=== PATIENT | female | born 1935 | race Caucasian/White ===

== ENCOUNTER 2017-08-18 14:53 | Inpatient (IN) | payer MEDICARE, OTHER ==
[~2017-08-18] VITALS: Ht 162.6 cm; Wt 75.0 kg
[~2017-08-18 14:53] MED LIST: AMLO5 PO; ECOT81TA2 PO
[2017-08-18 14:58] VITALS: BP 183/86; PULSE 81; RESP 16; TEMP 99.3; O2SAT 96
--- NOTE | 2017-08-18 15:15 | PD ---
HPI Chief Complaint: Psychiatric Symptoms Time Seen by Provider: 15:15 Travel History International Travel<30 days: No Contact w/Intl Traveler<30days: No Traveled to known affect area: No PFSH Past Medical History Arthritis: Yes Asthma: No Anxiety: No Depression: No Cancer: Yes (LEUKEMIA) Cardiovascular Problems: No Chemotherapy: Yes (LEUKEMIA) Chest Pain: No Cerebrovascular Accident: No Diabetes: No Endocrine: No GERD: Yes Genitourinary: Yes Hepatitis: Yes (C) Immune Disorder: No Kidney Stones: Yes Musculoskeletal: Yes Neurologic: Yes Psychiatric: No Reproductive: No Respiratory: Yes Migraines: No Radiation Therapy: No Seizures: No Sleep Apnea: Yes Thyroid Disease: No Ulcer: Yes ?: Not Past Surgical History Gynecologic Surgery: Yes Tonsillectomy: Yes Social History Alcohol Use: No Tobacco Use: No Substance Use: No Allergies-Medications (Allergen,Severity, Reaction): Coded Allergies: No Known Allergies (Unverified Adverse Reaction, Unknown, 08/18/17) Reported Meds & Prescriptions Reported Meds & Active Scripts Active Norvasc (Amlodipine Besylate) 5 Mg Tab 5 Mg PO DAILY 30 Days Ecotrin (Aspirin) 81 Mg Tabec 81 Mg PO DAILY Data Data Last Documented VS Vital Signs Date Time Temp Pulse Resp B/P (MAP) Pulse Ox O2 Delivery O2 Flow Rate FiO2 08/18/17 14:58 99.3 81 16 183/86 (118) 96 Orders Orders Electrocardiogram (08/18/17 15:06) Complete Blood Count With Diff (08/18/17 15:06) Comprehensive Metabolic Panel (08/18/17 15:06) Psych Screen (08/18/17 15:06) Diet Regular Basic (08/18/17 Dinner) Urinalysis - C+S If Indicated (08/18/17 15:16) Alcohol (Ethanol) (08/18/17 15:16) Drug Screen, Random Urine (08/18/17 15:16) Salicylates (Aspirin) (08/18/17 15:16) Tylenol (Acetaminophen) (08/18/17 15:16) Thyroid Stimulating Hormone (08/18/17 15:21) Nicolas Fraser MD August 18, 2017 15:15
--- NOTE | 2017-08-18 15:20 | PD ---
HPI Chief Complaint: Psychiatric Symptoms Time Seen by Provider: 15:16 Travel History International Travel<30 days: No Contact w/Intl Traveler<30days: No Traveled to known affect area: No History of Present Illness HPI This is a 81-year-old female who presents under Avendaño act initiated by the [employer]. According to her paperwork the patient has a history of dementia. She was concerned that her was stealing money with appears that the patient is a resident of assisted-living facility called [facility]. Her is a resident there too. Today apparently someone drove her to the [employer] and somehow [facility]'s office became involved and she was placed under Avendaño act. She was then brought to [facility] who then sent her here for unknown reasons. Our nurse will attempt to contact [facility] to get additional information about why she was sent here. The patient is denying any suicidal homicidal ideation. She denies any hallucinations. She denies any drug or alcohol use. She has no medical complaints at this time and feels quite well. PFSH Past Medical History Arthritis: Yes Asthma: No Anxiety: No Depression: No Cancer: Yes (LEUKEMIA) Cardiovascular Problems: No Chemotherapy: Yes (LEUKEMIA) Chest Pain: No Cerebrovascular Accident: No Diabetes: No Endocrine: No GERD: Yes Genitourinary: Yes Hepatitis: Yes (C) Immune Disorder: No Kidney Stones: Yes Musculoskeletal: Yes Neurologic: Yes Psychiatric: No Reproductive: No Respiratory: Yes Migraines: No Radiation Therapy: No Seizures: No Sleep Apnea: Yes Thyroid Disease: No Ulcer: Yes ?: Not Past Surgical History Gynecologic Surgery: Yes Tonsillectomy: Yes Social History Alcohol Use: No Tobacco Use: No Substance Use: No Allergies-Medications (Allergen,Severity, Reaction): Coded Allergies: No Known Allergies (Unverified Adverse Reaction, Unknown, 08/18/17) Reported Meds & Prescriptions Reported Meds & Active Scripts Active Norvasc (Amlodipine Besylate) 5 Mg Tab 5 Mg PO DAILY 30 Days Ecotrin (Aspirin) 81 Mg Tabec 81 Mg PO DAILY Review of Systems Except as stated in HPI: all other systems reviewed are Neg Physical Exam Narrative GENERAL: Well-developed well-nourished female no acute distress sitting upright in chair in the signal 20 room. SKIN: Warm and dry. HEAD: Atraumatic. Normocephalic. EYES: Pupils equal and round. No scleral icterus. No injection or drainage. ENT: No nasal bleeding or discharge. Mucous membranes pink and moist. NECK: Trachea midline. No JVD. CARDIOVASCULAR: Regular rate and rhythm. No murmur appreciated. RESPIRATORY: No accessory muscle use. Clear to auscultation. Breath sounds equal bilaterally. GASTROINTESTINAL: Abdomen soft, non-tender, nondistended. Hepatic and splenic margins not palpable. MUSCULOSKELETAL: No obvious deformities. No clubbing. No cyanosis. No edema. NEUROLOGICAL: Awake and alert. No obvious cranial nerve deficits. Motor grossly within normal limits. Normal speech. Alert and oriented to person, place, time. Data Data Last Documented VS Vital Signs Date Time Temp Pulse Resp B/P (MAP) Pulse Ox O2 Delivery O2 Flow Rate FiO2 08/18/17 14:58 99.3 81 16 183/86 (118) 96 Orders Orders Electrocardiogram (08/18/17 15:06) Complete Blood Count With Diff (08/18/17 15:06) Psych Screen (08/18/17 15:06) Diet Regular Basic (08/18/17 Dinner) Urinalysis - C+S If Indicated (08/18/17 15:16) Drug Screen, Random Urine (08/18/17 15:16) Salicylates (Aspirin) (08/18/17 15:16) Thyroid Stimulating Hormone (08/18/17 15:21) Tylenol (Acetaminophen) (08/18/17 15:09) Alcohol (Ethanol) (08/18/17 15:09) Comprehensive Metabolic Panel (08/18/17 15:09) Labs Laboratory Tests Test 08/18/17 15:09 08/18/17 17:10 White Blood Count 7.8 TH/MM3 Red Blood Count 4.80 MIL/MM3 Hemoglobin 13.8 GM/DL Hematocrit 41.9 % Mean Corpuscular Volume 87.4 FL Mean Corpuscular Hemoglobin 28.8 PG Mean Corpuscular Hemoglobin Concent 32.9 % Red Cell Distribution Width 14.1 % Platelet Count 229 TH/MM3 Mean Platelet Volume 7.6 FL Neutrophils (%) (Auto) 69.3 % Lymphocytes (%) (Auto) 23.0 % Monocytes (%) (Auto) 5.4 % Eosinophils (%) (Auto) 1.4 % Basophils (%) (Auto) 0.9 % Neutrophils # (Auto) 5.4 TH/MM3 Lymphocytes # (Auto) 1.8 TH/MM3 Monocytes # (Auto) 0.4 TH/MM3 Eosinophils # (Auto) 0.1 TH/MM3 Basophils # (Auto) 0.1 TH/MM3 CBC Comment DIFF FINAL Differential Comment Blood Urea Nitrogen 17 MG/DL Creatinine 1.00 MG/DL Random Glucose 88 MG/DL Total Protein 8.1 GM/DL Albumin 3.9 GM/DL Calcium Level 9.3 MG/DL Alkaline Phosphatase 43 U/L Aspartate Amino Transf (AST/SGOT) 23 U/L Alanine Aminotransferase (ALT/SGPT) 24 U/L Total Bilirubin 0.3 MG/DL Sodium Level 140 MEQ/L Potassium Level 3.9 MEQ/L Chloride Level 104 MEQ/L Carbon Dioxide Level 24.9 MEQ/L Anion Gap 11 MEQ/L Estimat Glomerular Filtration Rate 53 ML/MIN Thyroid Stimulating Hormone 3rd Gen 0.757 uIU/ML Salicylates Level LESS THAN 1.7 MG/DL Acetaminophen Level LESS THAN 2.0 MCG/ML Ethyl Alcohol Level LESS THAN 3 MG/DL Urine Color LIGHT-YELLOW Urine Turbidity CLEAR Urine pH 6.5 Urine Specific [place] 1.007 Urine Protein NEG mg/dL Urine Glucose (UA) NEG mg/dL Urine Ketones NEG mg/dL Urine Occult Blood NEG Urine Nitrite NEG Urine Bilirubin NEG Urine Urobilinogen LESS THAN 2.0 MG/DL Urine Leukocyte Esterase SMALL Urine WBC 2 /hpf Urine Squamous Epithelial Cells <1 /hpf Microscopic Urinalysis Comment CULT NOT INDICATED Urine Opiates Screen NEG Urine Barbiturates Screen NEG Urine Amphetamines Screen NEG Urine Benzodiazepines Screen NEG Urine Cocaine Screen NEG Urine Cannabinoids Screen NEG MDM Medical Decision Making Medical Screen Exam Complete: Yes Emergency Medical Condition: Yes Medical Record Reviewed: Yes Differential Diagnosis Dementia, acute psychosis, encephalopathy, meningitis, UTI Narrative Course 81-year-old female presents under Avendaño act for psychiatric evaluation. Mental health screening discussed with the patient. Psychiatric screen ordered. The patient's medical workup is unremarkable. She is medically cleared for psychiatric disposition. Diagnosis Primary Impression: Medical clearance for psychiatric admission Reno Munguia August 18, 2017 15:20
[2017-08-18 15:52] LABS: AUTOMATED NEUTROPHIL # 5.4 TH/MM3 (1.8-7.7); BASOPHIL # 0.1 TH/MM3 (0-0.2); BASOPHIL % 0.9 % (0.0-2.0); EOSINOPHIL # 0.1 TH/MM3 (0-0.4); EOSINOPHIL % 1.4 % (0.0-4.0); HEMATOCRIT 41.9 % (35.0-46.0); HEMOGLOBIN 13.8 GM/DL (11.6-15.3); LYMPHOCYTE # 1.8 TH/MM3 (1.0-4.8); MEAN CELL VOLUME 87.4 FL (80.0-100.0); MEAN CORPUSCULAR HEMOGLOBIN 28.8 PG (27.0-34.0); MEAN CORPUSCULAR HGB CONC 32.9 % (32.0-36.0); MEAN PLATELET VOLUME 7.6 FL (7.0-11.0); MONO % 5.4 % (0.0-8.0); MONOCYTE # 0.4 TH/MM3 (0-0.9); NEUT % 69.3 % (16.0-70.0); PLATELET COUNT 229 TH/MM3 (150-450); RED CELL DISTRIBUTION WIDTH 14.1 % (11.6-17.2); WHITE BLOOD COUNT 7.8 TH/MM3 (4.0-11.0)
[2017-08-18 16:12] LABS: ALBUMIN 3.9 GM/DL (3.4-5.0); ALT (GPT) 24 U/L (10-53); AST (GOT) 23 U/L (15-37); BICARBONATE 24.9 MEQ/L (21.0-32.0); BLOOD UREA NITROGEN 17 MG/DL (7-18); CALCIUM 9.3 MG/DL (8.5-10.1); CHLORIDE 104 MEQ/L (98-107); GLOMERULAR FILTRATION RATE 53 ML/MIN (>89); GLUCOSE,RANDOM 88 MG/DL (74-106); SODIUM (NA) 140 MEQ/L (136-145)
[2017-08-18 16:22] LABS: ALKALINE PHOSPHATASE 43 U/L (45-117); TOTAL BILIRUBIN ADULT 0.3 MG/DL (0.2-1.0); TOTAL PROTEIN 8.1 GM/DL (6.4-8.2)
[2017-08-18 16:26] LABS: ACETAMINOPHEN LESS THAN 2.0 MCG/ML (10.0-30.0)
[2017-08-18 17:51] LABS: BILIRUBIN, URINE NEG (NEG); BLOOD, URINE NEG (NEG); GLUCOSE,URINE NEG (NEG); KETONE, URINE NEG (NEG); NITRITE,URINE NEG (NEG); PH, URINE 6.5 (5.0-8.5); SQUAMOUS EPITHELIAL CELL URINE <1 /hpf (0-5); URINE COLOR LIGHT-YELLOW (YELLW/STRAW); URINE LEUKOCYTE ESTERASE SMALL (NEG)
[2017-08-18 19:35] VITALS: BP 164/78; PULSE 84; RESP 17; O2SAT 97
[2017-08-19 01:00] VITALS: BP 176/92; PULSE 74; RESP 16; TEMP 98.3; O2SAT 95
[2017-08-19] MEDS ORDERED: ALUMINUM/MAGNESIUM/SIMETH 30 ML CUP PO PRN (01:15)
[2017-08-19] MEDS ORDERED: LORazepam 0.5 MG TAB age > 65 yrs PO PRN (01:15)
[2017-08-19] MEDS ORDERED: MAGNESIUM HYDROXIDE SUSP 30 ML CUP PO PRN (01:15)
[2017-08-19] MEDS ORDERED: diphenhydrAMINE HCL 50 MG/ML VIAL - HS PRN IM (01:15)
[2017-08-19] MEDS ORDERED: LORazepam 2 MG/ML VIAL - age > 65 yrs IM PRN (01:15)
[2017-08-19] MEDS ORDERED: diphenhydrAMINE HCL 50 MG CAP - HS PRN PO (01:15)
[2017-08-19 06:15] VITALS: BP 164/89; PULSE 65; RESP 16; TEMP 97.9; O2SAT 95
[2017-08-19] MEDS: amLODIPine BESYLATE 5 MG TAB PO SCH (08:49)
[2017-08-19] MEDS: ACETAMINOPHEN 325 MG TAB PO PRN ×2 (08:51→13:30)
[2017-08-19] MEDS ORDERED: hydrOXYzine HCL 50 MG TAB PO PRN (10:45)
--- NOTE | 2017-08-19 10:51 | HHI.HP ---
Provisional Diagnosis Admission Date August 19, 2017 at 00:56 [place] I. Alzheimer's disease late onset, dementia with behavioral disturbance Certification of Person's Competence To Provide Express and Informed Consent I have personally examined Ria Bravo , a person being served at [facility] on, August 19, 2017 10:38. Express and informed consent means consent voluntarily given in writing, by a competent person, after sufficient explanation and disclosure of the subject matter involved to enable the person to make a knowing and willful decision without any element of force, fraud, deceit, duress, or other form of constraint or coercion. This person is 18 years of age or older, is not now known to be incompetent to consent to treatment with a guardian advocate, and does not have a health care surrogate or proxy currently making medical treatment decisions. I have found this person to be one of the following: [] Competent to provide express and informed consent, as defined above, for voluntary admission to this facility and is competent to provide express and informed consent for treatment. He/she has the consistent capacity to make well reasoned, willful, and knowing decisions concerning his or her medical or mental health treatment. The person fully and consistently understands the purpose of the admission for examination/placement and is fully capable of personally exercising all rights assured under [place] Incompetent to provide express and informed consent to voluntary admission, and this is incompetent to provide express and informed consent to treatment. The person must be transferred to involuntary status and a petition for a guardian advocate filed with the Circuit Court. [] Refusing to provide express and informed consent to voluntary admission but is competent to provide express and informed consent for treatment. The person must be discharged or transferred to involuntary status. Form shall be completed within 24 hours of a person's arrival at the receiving facility and filed in the clinical record of each person: 1. Admitted on a voluntary basis 2. Permitted to provide express and informed consent to his/her own treatment 3. Allowed to transfer from involuntary to voluntary status 4. Prior to permitting a person to consent to his or her own treatment after having been previously found incompetent to consent to treatment. History of Present Illness Capacity: Lacks Capacity HPI Patient is a 81-year-old white female comes here under a Avendaño act of the [facility]'s office dated 08/18/17 at 1326 hrs. that document reviewed and agreed with it essentially states on August 18, 2017 I may contact with Ria who has made several allegations of her stealing money and not allowing her to drive or leave the residence. Through further investigation it was found that Ria has been diagnosed with dementia. Ria left their assisted living facility without telling anyone got into her vehicle with unknown roll off driver to get a ride into [place] at this [facility]. Due to Ria's diminished mental capacity and remembering timelines as well as paranoia she was transported under the Avendaño act in attempts to get her a better mental health assessment it is certain without help or care of Ria could unintentionally get herself hurt or loss she should refuse to go back to her residence due to the belief her would be angry at her for running away. Patient seen screen in the emergency department urine toxicology negative, urinalysis shows no culture indicated. Patient seen in her room with nurse Audelia. Patient is an alert diffusely disoriented to place time and situation white female appears about his stated age she is pleasant cooperative no acute distress. She states she lives with her of 40 years that they get along well together that they live in their own apartment. She says she does not know why she was Avendaño acted. She denies suicidality and homicidality voices or visions. She denies any prior psychiatric contact or hospitalization or psychotropic medication. She denies any alcohol or drug use. She denies any past physical and/or sexual abuse. She states she has 4 adult children who live a distance from her at this time patient does not meet criteria for acute involuntary psychiatric hospitalization under the Avendaño act L the first opinion request second opinion. I feel she does not have capacity thus I will ask for health care surrogate and guardian advocate. We will attempt to reach patient' s to get further information. It appears patient has had her 4 adult children with a relationship prior to her present . It appears to may be some relationship issues between patient's and her children Review of Systems Constitutional: DENIES: Diaphoretic episodes, Fatigue, Fever, Weight gain, Weight loss, Chills, Dizziness, Change in appetite, Night Sweats Endocrine: DENIES: Abnorml menstrual pattern, Heat/cold intolerance, Polydipsia , Polyuria, Polyphagia Eyes: DENIES: Blurred vision, Diplopia, Eye inflammation, Eye pain, Vision loss , Photosensitivity, Double Vision Ears, nose, mouth, throat: DENIES: Tinnitus, Hearing loss, Vertigo, Nasal discharge, Oral lesions, Throat pain, Hoarseness, Ear Pain, Running Nose, Epistaxis, Sinus Pain, Toothache, Odynophagia Respiratory: DENIES: Apneas, Cough, Snoring, Wheezing, Hemoptysis, Sputum production, Shortness of breath Cardiovascular: DENIES: Chest pain, Palpitations, Syncope, Dyspnea on Exertion , PND, Lower Extremity Edema, Orthopnea, Claudication Gastrointestinal: DENIES: Abdominal pain, Black stools, Bloody stools, Constipation, Diarrhea, Nausea, Vomiting, Difficulty Swallowing, Anorexia Genitourinary: DENIES: Abnormal vaginal bleeding, Dysmenorrhea, Dyspareunia, Sexual dysfunction, Urinary frequency, Urinary incontinence, Urgency, Hematuria , Dysuria, Nocturia, Vaginal discharge Musculoskeletal: DENIES: Joint pain, Muscle aches, Stiffness, Joint Swelling, Back pain, Neck pain Integumentary: DENIES: Abnormal pigmentation, Pruritus, Rash, Nail changes, Breast masses, Breast skin changes, Nipple discharge Hematologic/lymphatic: DENIES: Bruising, Lymphadenopathy Immunologic/allergic: DENIES: Eczema, Urticaria Neurologic: DENIES: Abnormal gait, Headache, Localized weakness, Paresthesias, Seizures, Speech Problems, Tremor, Poor Balance Psychiatric: DENIES: Anxiety, Confusion, Mood changes, Depression, Hallucinations, Agitation, Suicidal Ideation, Homicidal Ideation, Delusions Past Psych History Psychological trauma history Patient denies Violence risk - others (6 mos) Low Violence risk - self (6 mos) Low Substance Abuse History Drugs/Alcohol past 12 months Patient denies Past Family Social History Coded Allergies: No Known Allergies (Unverified Allergy, Unknown, 08/19/17) Discontinued Scripts Amlodipine Besylate (Norvasc) 5 Mg Tab, 5 MG PO DAILY for BLOOD PRESSURE for 30 Days, TAB 0 Refills Prov:Mitzy Cohen 02/23/14 Aspirin (Ecotrin Low Strength) 81 Mg Tabec, 81 MG PO DAILY for PREVENT STROKE , #30 TAB 0 Refills Prov:Mitzy Cohen 02/23/14 Current Medications Medications (Trade) Dose Ordered Sig/Ivan Route Start Time Stop Time Status Last Admin (Benadryl) 50 mg HS PRN PO 08/19/17 01:15 (Benadryl Inj) 50 mg HS PRN IM 08/19/17 01:15 (Tylenol) 650 mg Q4H PRN PO 08/19/17 01:15 08/19/17 08:51 (Milk Of Magnesia Liq) 30 ml DAILY PRN PO 08/19/17 01:15 (Mag-Al Plus Susp Liq) 30 ml Q6H PRN PO 08/19/17 01:15 (Norvasc) 5 mg DAILY PO 08/19/17 09:00 08/19/17 08:49 Family Psych History Patient denies Social History Patient lives with her of 40 years. She has had 4 adult children by a prior relationship Patient's Strengths (min. 2) Patient verbal able access healthcare Physical Exam Patient medically cleared ED at the present time patient sitting quietly in her room she is in no acute distress, patient in no respiratory distress, no complaints of abdominal pain, patient moving all 4 extremities without difficulty. No abnormal motor movements noted Vital Signs Vital Signs Date Time Temp Pulse Resp B/P (MAP) Pulse Ox O2 Delivery O2 Flow Rate FiO2 08/19/17 06:15 97.9 65 16 164/89 (114) 95 08/18/17 19:35 Room Air Lab Results Test 08/18/17 15:09 08/18/17 17:10 White Blood Count 7.8 TH/MM3 Red Blood Count 4.80 MIL/MM3 Hemoglobin 13.8 GM/DL Hematocrit 41.9 % Mean Corpuscular Volume 87.4 FL Mean Corpuscular Hemoglobin 28.8 PG Mean Corpuscular Hemoglobin Concent 32.9 % Red Cell Distribution Width 14.1 % Platelet Count 229 TH/MM3 Mean Platelet Volume 7.6 FL Neutrophils (%) (Auto) 69.3 % Lymphocytes (%) (Auto) 23.0 % Monocytes (%) (Auto) 5.4 % Eosinophils (%) (Auto) 1.4 % Basophils (%) (Auto) 0.9 % Neutrophils # (Auto) 5.4 TH/MM3 Lymphocytes # (Auto) 1.8 TH/MM3 Monocytes # (Auto) 0.4 TH/MM3 Eosinophils # (Auto) 0.1 TH/MM3 Basophils # (Auto) 0.1 TH/MM3 CBC Comment DIFF FINAL Differential Comment Blood Urea Nitrogen 17 MG/DL Creatinine 1.00 MG/DL Random Glucose 88 MG/DL Total Protein 8.1 GM/DL Albumin 3.9 GM/DL Calcium Level 9.3 MG/DL Alkaline Phosphatase 43 U/L Aspartate Amino Transf (AST/SGOT) 23 U/L Alanine Aminotransferase (ALT/SGPT) 24 U/L Total Bilirubin 0.3 MG/DL Sodium Level 140 MEQ/L Potassium Level 3.9 MEQ/L Chloride Level 104 MEQ/L Carbon Dioxide Level 24.9 MEQ/L Anion Gap 11 MEQ/L Estimat Glomerular Filtration Rate 53 ML/MIN Thyroid Stimulating Hormone 3rd Gen 0.757 uIU/ML Salicylates Level LESS THAN 1.7 MG/DL Acetaminophen Level LESS THAN 2.0 MCG/ML Ethyl Alcohol Level LESS THAN 3 MG/DL Urine Color LIGHT-YELLOW Urine Turbidity CLEAR Urine pH 6.5 Urine Specific [place] 1.007 Urine Protein NEG mg/dL Urine Glucose (UA) NEG mg/dL Urine Ketones NEG mg/dL Urine Occult Blood NEG Urine Nitrite NEG Urine Bilirubin NEG Urine Urobilinogen LESS THAN 2.0 MG/DL Urine Leukocyte Esterase SMALL Urine WBC 2 /hpf Urine Squamous Epithelial Cells <1 /hpf Microscopic Urinalysis Comment CULT NOT INDICATED Urine Opiates Screen NEG Urine Barbiturates Screen NEG Urine Amphetamines Screen NEG Urine Benzodiazepines Screen NEG Urine Cocaine Screen NEG Urine Cannabinoids Screen NEG Mental Status Examination Appearance: Appropriate Consciousness: Alert Orientation: Person Motor Activity: Normal gait Speech: Unremarkable Language: Adequate Fund of Knowledge: Adequate Attention and Concentration: Easily Distracted Memory: Impaired Mood: Other (Euthymic to mildly dysphoric) Affect: Other (Decreased range and intensity) Thought Process & Associations: Intact Thought Content: Other (Somewhat disorganized) Hallucination Type: None Delusion Type: Other (Mildly vigilant) Suicidal Ideation: No Suicidal Plan: No Suicidal Intention: No Homicidal Ideation: No Homicidal Plan: No Homicidal Intention: No Insight: Poor Judgment: Poor Assessment & Plan Problem List: (1) DEMENTIA IN OTH DISEASES CLASSD ELSWHR W BEHAVIORAL DISTURB ICD Codes: F02.81 - DEMENTIA IN OTH DISEASES CLASSD ELSWHR W BEHAVIORAL DISTURB (2) ALZHEIMER'S DISEASE WITH LATE ONSET ICD Codes: G30.1 - ALZHEIMER'S DISEASE WITH LATE ONSET Assessment & Plan Estimated LOS 3-5: days at this time patient does meet criteria for further assessment of the Avendaño act thus I will do first opinion request second opinion , I feel she does not have capacity less I will ask for health care surrogate guardian advocate will continue medications per the med reconciliation. We will have hospitalist consult with us. We will attempt to reach patient's to get further information concerning this nice lady hopefully she can return home to living situation with her Discharge Planning Possible return home Request HC Surrog/Guard Advoc?: Yes Keegan Nicole MD August 19, 2017 10:51
[2017-08-19] MEDS: FLUoxetine HCL 20 MG CAP PO SCH (12:10)
--- NOTE | 2017-08-19 13:12 | PD.PSY.CON ---
Provisional Diagnosis Admission Date August 19, 2017 at 00:56 [place]. Alzheimer's disease late onset, dementia with behavioral disturbance History of Present Illness Service Psychiatry Consult Requested By Psychiatry for second opinion Reason for Consult Second opinion Primary Care Physician Unknown HPI Patient is a 81-year-old white female comes here under a Avendaño act of the [facility]'s office dated 08/18/17 at 1326 hrs. that document reviewed and agreed with it essentially states on August 18, 2017 I may contact with Ria who has made several allegations of her stealing money and not allowing her to drive or leave the residence. Through further investigation it was found that Ria has been diagnosed with dementia. Ria left their assisted living facility without telling anyone got into her vehicle with unknown shuttle bus driver to get a ride into [place] at this [facility]. Due to Ria's diminished mental capacity and remembering timelines as well as paranoia she was transported under the Avendaño act in attempts to get her a better mental health assessment it is certain without help or care of Ria could unintentionally get herself hurt or loss she should refuse to go back to her residence due to the belief her would be angry at her for running away. Patient seen screen in the emergency department urine toxicology negative, urinalysis shows no culture indicated. Patient seen in her room with nurse Audelia. Patient is an alert diffusely disoriented to place time and situation white female appears about his stated age she is pleasant cooperative no acute distress. She states she lives with her of 40 years that they get along well together that they live in their own apartment. She says she does not know why she was Avendaño acted. She denies suicidality and homicidality voices or visions. She denies any prior psychiatric contact or hospitalization or psychotropic medication. She denies any alcohol or drug use. She denies any past physical and/or sexual abuse. She states she has 4 adult children who live a distance from her at this time patient does not meet criteria for acute involuntary psychiatric hospitalization under the Avendaño act L the first opinion request second opinion. I feel she does not have capacity thus I will ask for health care surrogate and guardian advocate. We will attempt to reach patient' s to get further information. It appears patient has had her 4 adult children with a relationship prior to her present . It appears to may be some relationship issues between patient's and her children. Patient was consulted to me for second opinion. She was found pacing in the [place], she is calm, cooperative, pleasant. The patient is diffusely confused, partially disoriented. She knows that she is in the hospital, she knows august, but he does not know the city and the year. The patient told me that she is here because this is her house. She denies pain, she denies distress, she reports good mood. She says that she is actually happy. She denies suicidal enemas ideation, she denies visual and auditory hallucinations. No agitation, no aggressive behavior, no prominent delusions present at this moment Review of Systems Constitutional: DENIES: Diaphoretic episodes, Fatigue, Fever, Weight gain, Weight loss, Chills, Dizziness, Change in appetite, Night Sweats Endocrine: DENIES: Abnorml menstrual pattern, Heat/cold intolerance, Polydipsia , Polyuria, Polyphagia Eyes: DENIES: Blurred vision, Diplopia, Eye inflammation, Eye pain, Vision loss , Photosensitivity, Double Vision Ears, nose, mouth, throat: DENIES: Tinnitus, Hearing loss, Vertigo, Nasal discharge, Oral lesions, Throat pain, Hoarseness, Ear Pain, Running Nose, Epistaxis, Sinus Pain, Toothache, Odynophagia Respiratory: DENIES: Apneas, Cough, Snoring, Wheezing, Hemoptysis, Sputum production, Shortness of breath Cardiovascular: DENIES: Chest pain, Palpitations, Syncope, Dyspnea on Exertion , PND, Lower Extremity Edema, Orthopnea, Claudication Gastrointestinal: DENIES: Abdominal pain, Black stools, Bloody stools, Constipation, Diarrhea, Nausea, Vomiting, Difficulty Swallowing, Anorexia Genitourinary: DENIES: Abnormal vaginal bleeding, Dysmenorrhea, Dyspareunia, Sexual dysfunction, Urinary frequency, Urinary incontinence, Urgency, Hematuria , Dysuria, Nocturia, Vaginal discharge Musculoskeletal: DENIES: Joint pain, Muscle aches, Stiffness, Joint Swelling, Back pain, Neck pain Integumentary: DENIES: Abnormal pigmentation, Pruritus, Rash, Nail changes, Breast masses, Breast skin changes, Nipple discharge Hematologic/lymphatic: DENIES: Bruising, Lymphadenopathy Immunologic/allergic: DENIES: Eczema, Urticaria Neurologic: DENIES: Abnormal gait, Headache, Localized weakness, Paresthesias, Seizures, Speech Problems, Tremor, Poor Balance Psychiatric: DENIES: Anxiety, Confusion, Mood changes, Depression, Hallucinations, Agitation, Suicidal Ideation, Homicidal Ideation, Delusions Past Family Social History Coded Allergies: No Known Allergies (Unverified Allergy, Unknown, 08/19/17) Discontinued Scripts Amlodipine Besylate (Norvasc) 5 Mg Tab, 5 MG PO DAILY for BLOOD PRESSURE for 30 Days, TAB 0 Refills Prov:Mitzy CohenSusan [employer]CRET[employer]RAFTSM[employer] 02/23/14 Aspirin (Ecotrin Low Strength) 81 Mg Tabec, 81 MG PO DAILY for PREVENT STROKE , #30 TAB 0 Refills Prov:Mitzy CohenSusan [employer]CR[employer] 02/23/14 Current Medications Medications (Trade) Dose Ordered Sig/Ivan Route Start Time Stop Time Status Last Admin (Benadryl) 50 mg HS PRN PO 08/19/17 01:15 (Benadryl Inj) 50 mg HS PRN IM 08/19/17 01:15 (Tylenol) 650 mg Q4H PRN PO 08/19/17 01:15 08/19/17 08:51 (Milk Of Magnesia Liq) 30 ml DAILY PRN PO 08/19/17 01:15 (Mag-Al Plus Susp Liq) 30 ml Q6H PRN PO 08/19/17 01:15 (Norvasc) 5 mg DAILY PO 08/19/17 09:00 08/19/17 08:49 (Atarax) 50 mg Q6H PRN PO 08/19/17 10:45 (PROzac) 20 mg DAILY PO 08/19/17 11:15 08/19/17 12:10 (Synthroid) 50 mcg DAILY@0600 PO 08/20/17 06:00 Patient's Strengths (min. 2) Patient verbal able access healthcare Physical Exam Vital Signs Vital Signs Date Time Temp Pulse Resp B/P (MAP) Pulse Ox O2 Delivery O2 Flow Rate FiO2 08/19/17 06:15 97.9 65 16 164/89 (114) 95 08/18/17 19:35 Room Air Lab Results Test 08/18/17 15:09 08/18/17 17:10 White Blood Count 7.8 TH/MM3 Red Blood Count 4.80 MIL/MM3 Hemoglobin 13.8 GM/DL Hematocrit 41.9 % Mean Corpuscular Volume 87.4 FL Mean Corpuscular Hemoglobin 28.8 PG Mean Corpuscular Hemoglobin Concent 32.9 % Red Cell Distribution Width 14.1 % Platelet Count 229 TH/MM3 Mean Platelet Volume 7.6 FL Neutrophils (%) (Auto) 69.3 % Lymphocytes (%) (Auto) 23.0 % Monocytes (%) (Auto) 5.4 % Eosinophils (%) (Auto) 1.4 % Basophils (%) (Auto) 0.9 % Neutrophils # (Auto) 5.4 TH/MM3 Lymphocytes # (Auto) 1.8 TH/MM3 Monocytes # (Auto) 0.4 TH/MM3 Eosinophils # (Auto) 0.1 TH/MM3 Basophils # (Auto) 0.1 TH/MM3 CBC Comment DIFF FINAL Differential Comment Blood Urea Nitrogen 17 MG/DL Creatinine 1.00 MG/DL Random Glucose 88 MG/DL Total Protein 8.1 GM/DL Albumin 3.9 GM/DL Calcium Level 9.3 MG/DL Alkaline Phosphatase 43 U/L Aspartate Amino Transf (AST/SGOT) 23 U/L Alanine Aminotransferase (ALT/SGPT) 24 U/L Total Bilirubin 0.3 MG/DL Sodium Level 140 MEQ/L Potassium Level 3.9 MEQ/L Chloride Level 104 MEQ/L Carbon Dioxide Level 24.9 MEQ/L Anion Gap 11 MEQ/L Estimat Glomerular Filtration Rate 53 ML/MIN Thyroid Stimulating Hormone 3rd Gen 0.757 uIU/ML Salicylates Level LESS THAN 1.7 MG/DL Acetaminophen Level LESS THAN 2.0 MCG/ML Ethyl Alcohol Level LESS THAN 3 MG/DL Urine Color LIGHT-YELLOW Urine Turbidity CLEAR Urine pH 6.5 Urine Specific Eads 1.007 Urine Protein NEG mg/dL Urine Glucose (UA) NEG mg/dL Urine Ketones NEG mg/dL Urine Occult Blood NEG Urine Nitrite NEG Urine Bilirubin NEG Urine Urobilinogen LESS THAN 2.0 MG/DL Urine Leukocyte Esterase SMALL Urine WBC 2 /hpf Urine Squamous Epithelial Cells <1 /hpf Microscopic Urinalysis Comment CULT NOT INDICATED Urine Opiates Screen NEG Urine Barbiturates Screen NEG Urine Amphetamines Screen NEG Urine Benzodiazepines Screen NEG Urine Cocaine Screen NEG Urine Cannabinoids Screen NEG Mental Status Examination Appearance: Appropriate Consciousness: Alert Orientation: Person Motor Activity: Normal gait Speech: Unremarkable Language: Adequate Fund of Knowledge: Adequate Attention and Concentration: Easily Distracted Memory: Impaired Mood: Other (Euthymic to mildly dysphoric) Affect: Other (Decreased range and intensity) Thought Process & Associations: Intact Thought Content: Other (Somewhat disorganized) Hallucination Type: None Delusion Type: Other (Mildly vigilant) Suicidal Ideation: No Suicidal Plan: No Suicidal Intention: No Homicidal Ideation: No Homicidal Plan: No Homicidal Intention: No Insight: Poor Judgment: Poor Assessment & Plan Problem List: (1) DEMENTIA IN OTH DISEASES CLASSD ELSWHR W BEHAVIORAL DISTURB ICD Codes: F02.81 - DEMENTIA IN OTH DISEASES CLASSD ELSWHR W BEHAVIORAL DISTURB Assessment & Plan: I have seen and examined this patient, reviewed documentation, I agree and concur with Dr. Nicole's assessment and plan. (2) ALZHEIMER'S DISEASE WITH LATE ONSET ICD Codes: G30.1 - ALZHEIMER'S DISEASE WITH LATE ONSET Assessment & Plan Estimated LOS: days Request HC Surrog/Guard Advoc?: Yes Narayan Santiago MD August 19, 2017 13:11
--- NOTE | 2017-08-19 13:28 | PD.CONS ---
HPI Service [facility] Consult Requested By Reason for Consult Medical management, history of leukemia and hypertension. Primary Care Physician Unknown Diagnoses: History of Present Illness 89-year-old female with past medical history of hypertension, leukemia, hep C, hyper myalgia, and dementia who presented emergency department on 08/18 after being Avendaño acted by law enforcement in [facility]. Patient had apparently left her [facility] news [facility] living facility without telling anyone and got into a vehicle with unknown six horse hitch driver for ride to [place] to the [employer]. According to law enforcement documentation patient believes that her was stealing money and was not allowing her to drive or leave their residence. It was felt that due to patient's inability to remember timeline, and paranoia she could be a threat to herself therefore was Avendaño acted and brought to the emergency department for psychiatric evaluation. [facility] has been consulted to assist with medical management including hypertension and history of leukemia. Patient is seen and examined in her room, calm and appears to be in no acute distress. She is awake, alert, and oriented only to self. She reports that her leukemia is not currently followed with any oncologist as this had been stable. She does report a history of high blood pressure as well as high cholesterol, is not able to provide me an accurate list of medications. She does report some dizziness but states that this is been ongoing for several months and has not had any proper diagnosing of dizziness. She reports that the dizziness occurs when she leans her head forward. She denies any dizziness or lightheadedness with change of positions or standing. She is also complaining of mid back pain and feels that this may be related to the bed as back pain began once she arrived to inpatient psychiatry department. She rates pain 3/10, nonradiating, dull, lying in bed will make it worse. She denies any leg weakness, saddle anesthesia, fecal urinary incontinence. She continues to ambulate without any assistive devices. She denies any dysuria, hematuria, frequency, or lower pelvic pain. Review of Systems Except as stated in HPI: all other systems reviewed are Neg Past Family Social History Allergies: Coded Allergies: No Known Allergies (Unverified Allergy, Unknown, 08/19/17) Past Medical History Partly obtained from patient as well as review of EMR. Patient is not the best historian. Leukemia currently in remission Hepatitis C Fibromyalgia Hypertension Hyperlipidemia Dementia Past Surgical History Tonsillectomy Reported Medications Reported Meds & Active Scripts Active No Active Prescriptions or Reported Medications Family History Obtained from EMR Parents with a positive history of Alzheimer's. Social History She denies any tobacco, alcohol, or illicit drug use per Physical Exam Vital Signs Vital Signs Date Time Temp Pulse Resp B/P (MAP) Pulse Ox O2 Delivery O2 Flow Rate FiO2 08/19/17 06:15 97.9 65 16 164/89 (114) 95 08/19/17 01:00 98.3 74 16 176/92 (120) 95 08/18/17 19:35 84 17 164/78 (106) 97 Room Air 08/18/17 14:58 99.3 81 16 183/86 (118) 96 Physical Exam GENERAL: This is a well-nourished, well-developed patient, in no apparent distress. SKIN: No rashes, ecchymoses or lesions. Cool and dry. HEAD: Atraumatic. Normocephalic. . EYES: Pupils equal round and reactive. Extraocular motions intact. No scleral icterus. No injection or drainage. ENT: Nose without bleeding, purulent drainage or septal hematoma. Throat without erythema. Uvula midline. Airway patent. NECK: Trachea midline. No JVD . Supple. CARDIOVASCULAR: Regular rate and rhythm without murmurs, gallops, or rubs. RESPIRATORY: Clear to auscultation. Breath sounds equal bilaterally. No wheezes , rales, or rhonchi. GASTROINTESTINAL: Abdomen soft, non-tender, nondistended. No palpable masses. No guarding. Active bowel sounds, no suprapubic pain MUSCULOSKELETAL: Extremities without clubbing, cyanosis, or edema. No joint tenderness, effusion, or edema noted. No calf tenderness. Ambulates without assistive devices, no spinal tenderness with palpation. No CVA tenderness. NEUROLOGICAL: Awake and alert, oriented to self, knows current president. Cranial nerves II through XII intact. Motor and sensory grossly within normal limits. Five out of 5 muscle strength in all muscle groups. Normal speech. Laboratory Laboratory Tests Test 08/18/17 15:09 08/18/17 17:10 White Blood Count 7.8 Red Blood Count 4.80 Hemoglobin 13.8 Hematocrit 41.9 Mean Corpuscular Volume 87.4 Mean Corpuscular Hemoglobin 28.8 Mean Corpuscular Hemoglobin Concent 32.9 Red Cell Distribution Width 14.1 Platelet Count 229 Mean Platelet Volume 7.6 Neutrophils (%) (Auto) 69.3 Lymphocytes (%) (Auto) 23.0 Monocytes (%) (Auto) 5.4 Eosinophils (%) (Auto) 1.4 Basophils (%) (Auto) 0.9 Neutrophils # (Auto) 5.4 Lymphocytes # (Auto) 1.8 Monocytes # (Auto) 0.4 Eosinophils # (Auto) 0.1 Basophils # (Auto) 0.1 CBC Comment DIFF FINAL Differential Comment Blood Urea Nitrogen 17 Creatinine 1.00 Random Glucose 88 Total Protein 8.1 Albumin 3.9 Calcium Level 9.3 Alkaline Phosphatase 43 Aspartate Amino Transf (AST/SGOT) 23 Alanine Aminotransferase (ALT/SGPT) 24 Total Bilirubin 0.3 Sodium Level 140 Potassium Level 3.9 Chloride Level 104 Carbon Dioxide Level 24.9 Anion Gap 11 Estimat Glomerular Filtration Rate 53 Thyroid Stimulating Hormone 3rd Gen 0.757 Salicylates Level LESS THAN 1.7 Acetaminophen Level LESS THAN 2.0 Ethyl Alcohol Level LESS THAN 3 Urine Color LIGHT-YELLOW Urine Turbidity CLEAR Urine pH 6.5 Urine Specific [place] 1.007 Urine Protein NEG Urine Glucose (UA) NEG Urine Ketones NEG Urine Occult Blood NEG Urine Nitrite NEG Urine Bilirubin NEG Urine Urobilinogen LESS THAN 2.0 Urine Leukocyte Esterase SMALL Urine WBC 2 Urine Squamous Epithelial Cells <1 Microscopic Urinalysis Comment CULT NOT INDICATED Urine Opiates Screen NEG Urine Barbiturates Screen NEG Urine Amphetamines Screen NEG Urine Benzodiazepines Screen NEG Urine Cocaine Screen NEG Urine Cannabinoids Screen NEG Result Diagram: 08/18/17 1509 08/18/17 1509 Assessment and Plan Assessment and Plan 89-year-old female with past medical history of hypertension, leukemia, hep C, hyper myalgia, and dementia who presented emergency department on 08/18 after being Avendaño acted by law enforcement in [facility] after leaving her [facility]D and getting a ride to [place]. [facility] consulted to assist with management of HTN and history of leukemia. Dementia with Behavioral disturbance - Treatment plan per psychiatry - Labs and UA unremarkable, toxicology negative HTN, not optimal HLD - Patient previously treated with Amlodipine for HTN, will restart. - Nurse to contact [facility] for medication list Leukemia in remission - CBC reviewed, unremarkable. Dizziness - Ongoing for months per patient when head is tilted forward. Suspect this is positional, check orthostatic BP's Mid back pain - Reports began when she arrived to psych, no other symptoms, ambulating without difficulties. - Tylenol as needed. Hypothyroidism - TSH stable, continue home dose levothyroxine. DVT prophylaxis-ambulation Discussed with nurse. Thank you for this consultation, will continue to follow along. Josselyn Carmen August 19, 2017 13:28
[2017-08-19] MEDS ORDERED: FLUO20CA12 PO (15:11)
[2017-08-19] MEDS ORDERED: LEVO50TA4 PO (15:12)
[2017-08-19 17:48] VITALS: BP 129/87; PULSE 79; RESP 17; TEMP 98.2; O2SAT 96
[2017-08-20] MEDS ORDERED: LEVOTHYROXINE SODIUM 50 MCG TAB PO SCH (06:00)
[2017-08-20 07:51] LABS: CHOLESTEROL 573 MG/DL (120-200)
[2017-08-20 07:56] LABS: CHOLESTEROL/ HDL RATIO 12.64 RATIO; FREE T4 0.91 NG/DL (0.76-1.46); HDL CHOLESTEROL 45.3 MG/DL (40.0-60.0); LDL CHOLESTEROL 493 MG/DL (0-99); TRIGLYCERIDES 173 MG/DL (42-150)
[2017-08-20] MEDS: amLODIPine BESYLATE 5 MG TAB PO SCH (09:53)
[2017-08-20] MEDS: FLUoxetine HCL 20 MG CAP PO SCH (09:53)
--- NOTE | 2017-08-20 11:07 | HHI.DS ---
Psychiatry Discharge Summary Inpatient Psychiatric care?: Yes Advance Directive: No Reason Not Provided: Due to Patient Condition Mental Health AdvanceDirective: No Health Care Proxy: No Admission Admission Date August 19, 2017 at 00:56 Admission Diagnosis: (1) DEMENTIA IN OTH DISEASES CLASSD ELSWHR W BEHAVIORAL DISTURB ICD Code: F02.81 - DEMENTIA IN OTH DISEASES CLASSD ELSWHR W BEHAVIORAL DISTURB (2) ALZHEIMER'S DISEASE WITH LATE ONSET ICD Code: G30.1 - ALZHEIMER'S DISEASE WITH LATE ONSET Brief History Patient is a 81-year-old white female comes here under a Avendaño act of the [facility]'s office dated 08/18/17 at 1326 hrs. that document reviewed and agreed with it essentially states on August 18, 2017 I may contact with Ria who has made several allegations of her stealing money and not allowing her to drive or leave the residence. Through further investigation it was found that Ria has been diagnosed with dementia. Ria left their assisted living facility without telling anyone got into her vehicle with unknown star route mail driver to get a ride into [place] at this [facility] [employer]. Due to Ria's diminished mental capacity and remembering timelines as well as paranoia she was transported under the Avendaño act in attempts to get her a better mental health assessment it is certain without help or care of Ria could unintentionally get herself hurt or loss she should refuse to go back to her residence due to the belief her would be angry at her for running away. Patient seen screen in the emergency department urine toxicology negative, urinalysis shows no culture indicated. Patient seen in her room with nurse Audelia. Patient is an alert diffusely disoriented to place time and situation white female appears about his stated age she is pleasant cooperative no acute distress. She states she lives with her of 40 years that they get along well together that they live in their own apartment. She says she does not know why she was Avendaño acted. She denies suicidality and homicidality voices or visions. She denies any prior psychiatric contact or hospitalization or psychotropic medication. She denies any alcohol or drug use. She denies any past physical and/or sexual abuse. She states she has 4 adult children who live a distance from her at this time patient does not meet criteria for acute involuntary psychiatric hospitalization under the Avendaño act L the first opinion request second opinion. I feel she does not have capacity thus I will ask for health care surrogate and guardian advocate. We will attempt to reach patient' s to get further information. It appears patient has had her 4 adult children with a relationship prior to her present . It appears to may be some relationship issues between patient's and her children. Patient was consulted to me for second opinion. She was found pacing in the [place], she is calm, cooperative, pleasant. The patient is diffusely confused, partially disoriented. She knows that she is in the hospital, she knows august, but he does not know the city and the year. The patient told me that she is here because this is her house. She denies pain, she denies distress, she reports good mood. She says that she is actually happy. She denies suicidal enemas ideation, she denies visual and auditory hallucinations. 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 did visit with his last night they had a good visit. Patient seen on this morning she had a good night she is alert diffusely confused but overall calm and cooperative denying suicidality homicidality voice or visions. She is quite willing to go home with her . feels safe with her coming home today. He agrees to a referral to [facility] to help monitor in their apartment. The B no Rx by me may follow through with [facility] and with their primary care physician Results Blood Pressure 129 / 87 Vital Signs Date Time Temp Pulse Resp B/P (MAP) Pulse Ox O2 Delivery O2 Flow Rate FiO2 08/19/17 17:48 98.2 79 17 129/87 (101) 96 08/18/17 19:35 Room Air Laboratory Tests Test 08/18/17 15:09 08/18/17 17:10 08/20/17 06:30 Alkaline Phosphatase 43 U/L (45-117) Estimat Glomerular Filtration Rate 53 ML/MIN (>89) Salicylates Level LESS THAN 1.7 MG/DL Acetaminophen Level LESS THAN 2.0 MCG/ML Urine Leukocyte Esterase SMALL (NEG) Triglycerides Level 173 MG/DL (42-150) Cholesterol Level 573 MG/DL (120-200) LDL Cholesterol 493 MG/DL (0-99) Laboratory Results Test 08/20/17 06:30 Cholesterol Level 573 MG/DL (120-200) HDL Cholesterol 45.3 MG/DL (40.0-60.0) LDL Cholesterol 493 MG/DL (0-99) Triglycerides Level 173 MG/DL (42-150) Summary of Procedures None done Pending results at discharge: No Medications # of Antipsychotic meds at D/C: 0 Approp Antipsych med options 1 - Minimum of three failed multiple trials of monotherapy. 2 - Documented plan to taper to monotherapy due to previous use of multiple meds OR cross-taper in progress at D/C. 3 - Documentation of augmentation of Clozapine. 4 - Justification other than those listed in allowable values 1-3, document here : Discharge Discharge Date: August 20, 2017 Discharge Diagnosis: (1) DEMENTIA IN OTH DISEASES CLASSD ELSWHR W BEHAVIORAL DISTURB Diagnosis: Principal ICD Code: F02.81 - DEMENTIA IN OTH DISEASES CLASSD ELSWHR W BEHAVIORAL DISTURB (2) ALZHEIMER'S DISEASE WITH LATE ONSET Diagnosis: Principal ICD Code: G30.1 - ALZHEIMER'S DISEASE WITH LATE ONSET Pt Condition on Discharge: Stable Discharge Disposition: Discharge Home Discharge Instructions Diet Instructions: As Tolerated, No Restrictions Activities you can perform: Regular-No Restrictions Scheduled Appointment: [facility], and follow-up with primary care physician Discharge Time > 30 minutes Mental Status Examination Appearance: Appropriate Consciousness: Alert Orientation: Person Motor Activity: Normal gait Speech: Unremarkable Language: Adequate Fund of Knowledge: Adequate Attention and Concentration: Easily Distracted Memory: Impaired Mood: Other (Euthymic to mildly dysphoric) Affect: Other (Decreased range and intensity) Thought Process & Associations: Intact Thought Content: Other (Somewhat disorganized) Hallucination Type: None Delusion Type: Other (Mildly vigilant) Suicidal Ideation: No Suicidal Plan: No Suicidal Intention: No Homicidal Ideation: No Homicidal Plan: No Homicidal Intention: No Insight: Poor Judgment: Poor Discharge/Advance Care Plan Health Problems: (1) DEMENTIA IN OTH DISEASES CLASSD ELSWHR W BEHAVIORAL DISTURB (2) ALZHEIMER'S DISEASE WITH LATE ONSET Goals to promote your health * To prevent worsening of your condition and complications * To maintain your health at the optimal level Directions to meet your goals Take your medications as prescribed Follow your dietary instruction Follow activity as directed Keep your appointments as scheduled Take your immunizations and boosters as scheduled If your symptoms worsen call your PCP, if no PCP go to Urgent Care Center or Emergency Room For 26/10 questions related to your inpatient stay or results of tests pending at discharge, please contact Dr. Keegan Nicole at Smoking is Dangerous to Your Health. Avoid second hand smoking Keegan Nicole MD August 20, 2017 11:07
[2017-08-20 13:50] LABS: HEMOGLOBIN A1C 5.6 % (4.3-6.0)
== END 2017-08-20 13:35 | disposition home health service (06) | DRG 57 ==
LOC: NEPD 14:53 → NEDA 08-19 00:56 → H260 08-19 01:15
PROVIDERS: ADMIT Psychiatry & Neurology Psychiatry; ATTEND Psychiatry & Neurology Psychiatry
DX: G30.1 Alzheimer's disease with late onset (principal); F02.81 Dementia in other diseases classified elsewhere, unspecified severity, with behavioral disturbance; C95.91 Leukemia, unspecified, in remission; K21.9 Gastro-esophageal reflux disease without esophagitis; I10 Essential (primary) hypertension; E03.9 Hypothyroidism, unspecified; E78.5 Hyperlipidemia, unspecified; G47.30 Sleep apnea, unspecified; M19.90 Unspecified osteoarthritis, unspecified site; M79.7 Fibromyalgia
CPT/HCPCS: 80053; 80061; 80307; 81001; 83036; 84439; 84443; 85025